=== PATIENT | female | born 2000 | race African-American/Black ===

== ENCOUNTER 2023-06-16 17:25 | Emergency (ER) | payer MEDICAID ==
[~2023-06-16] VITALS: Ht 177.8 cm; Wt 104.3 kg
[2023-06-16 18:02] VITALS: BP 147/92
[2023-06-16] MEDS ORDERED: AMOCLA875 PO (19:48)
== END 2023-06-16 19:55 | disposition home or self-care (01) ==
LOC: ER 17:25
DX: K04.7 Periapical abscess without sinus (principal)
CPT/HCPCS: 41800; 99282-25; A9270